=== PATIENT | male | born 1965 | race Caucasian/White ===

== ENCOUNTER 2017-09-11 22:17 | Emergency (ER) | payer SELFPAY ==
[~2017-09-11] VITALS: Ht 172.7 cm; Wt 63.4 kg
[~2017-09-11 22:17] MED LIST: HYDR25 PO; PRED20 PO
[2017-09-11 22:26] VITALS: BP 110/73; PULSE 103; RESP 16; TEMP 99.1; O2SAT 98
[2017-09-12 00:02] VITALS: BP 105/62; PULSE 89; RESP 17; TEMP 98.6; O2SAT 98
--- NOTE | 2017-09-12 00:35 | RADRPT ---
EXAM DATE/TIME: 09/12/2017 00:15 [place] COMPARISON: No previous studies available for comparison. INDICATIONS : Left knee swelling and tenderness. MEDICAL HISTORY : None. SURGICAL HISTORY : None. ENCOUNTER: Initial ACUITY: 1 day PAIN SCORE: 3/10 LOCATION: Left knee FINDINGS: There is prominent prepatellar soft tissue swelling. No evidence of underlying fracture or dislocatio n. Mineralization is normal and no significant articular abnormalities are evident. There is no evide nce of suprapatellar effusion. CONCLUSION: Prominent prepatellar swelling Patel Pinto MD on September 12, 2017 at 0:32 Board Certified Radiologist. This report was verified electronically.
[2017-09-12 00:44] LABS: AUTOMATED NEUTROPHIL # 8.2 TH/MM3 (1.8-7.7); BASOPHIL # 0.1 TH/MM3 (0-0.2); BASOPHIL % 0.7 % (0.0-2.0); EOSINOPHIL # 0.2 TH/MM3 (0-0.4); EOSINOPHIL % 1.7 % (0.0-4.0); HEMATOCRIT 44.8 % (39.0-51.0); HEMOGLOBIN 16.4 GM/DL (13.0-17.0); LYMPH % 14.2 % (9.0-44.0); LYMPHOCYTE # 1.6 TH/MM3 (1.0-4.8); MEAN CELL VOLUME 92.2 FL (80.0-100.0); MEAN CORPUSCULAR HEMOGLOBIN 33.7 PG (27.0-34.0); MEAN PLATELET VOLUME 7.4 FL (7.0-11.0); MONO % 8.5 % (0.0-8.0); MONOCYTE # 0.9 TH/MM3 (0-0.9); NEUT % 74.9 % (16.0-70.0); PLATELET COUNT 234 TH/MM3 (150-450); RED BLOOD COUNT 4.86 MIL/MM3 (4.50-5.90); RED CELL DISTRIBUTION WIDTH 13.6 % (11.6-17.2)
[2017-09-12 00:46] LABS: MEAN CORPUSCULAR HGB CONC 36.6 % (32.0-36.0)
[2017-09-12 00:51] LABS: ALBUMIN 3.8 GM/DL (3.4-5.0); ALT (GPT) 18 U/L (12-78); AST (GOT) 10 U/L (15-37); BICARBONATE 28.3 MEQ/L (21.0-32.0); BLOOD UREA NITROGEN 17 MG/DL (7-18); CALCIUM 8.8 MG/DL (8.5-10.1); CHLORIDE 104 MEQ/L (98-107); CREATININE 0.85 MG/DL (0.60-1.30); GLOMERULAR FILTRATION RATE 95 ML/MIN (>89); GLUCOSE,RANDOM 90 MG/DL (74-106); SODIUM (NA) 140 MEQ/L (136-145)
[2017-09-12 00:53] LABS: ALKALINE PHOSPHATASE 64 U/L (45-117); TOTAL BILIRUBIN ADULT 0.6 MG/DL (0.2-1.0); TOTAL PROTEIN 7.3 GM/DL (6.4-8.2)
--- NOTE | 2017-09-12 00:58 | PD ---
Physical Exam Date Seen by Provider: Sep 12, 2017 Time Seen by Provider: 00:54 Narrative 52-year-old male came to the emergency room with left knee swelling, pain and redness that has been going on for past 3-4 days. Patient says that he works as a industrial robotics mechanic and was kneeling down and working in a car and after that the symptoms started. It is progressively worsening. Patient is seen by my nurse practitioner and I am supervising her. The knee looks swollen and red and warm to touch. There was prepatellar fluctuance. My clinical diagnosis was prepatellar bursitis and cellulitis. X-ray of the knee showed prepatellar soft tissue swelling but no knee joint effusion. Decision was to do a tap of the prepatellar bursa and sent fluid for culture and Gram stain. Vital signs are stable. Patient had a prepatellar bursa tapped and tolerated the procedure well. Please refer to my procedure note. He will get antibiotic IV and DC home on oral antibiotics. Data Data Last Documented VS Vital Signs Date Time Temp Pulse Resp B/P (MAP) Pulse Ox O2 Delivery O2 Flow Rate FiO2 09/12/17 02:22 09/12/17 00:02 98.6 89 17 98 Room Air Orders Orders Complete Blood Count With Diff (09/12/17 00:08) Comprehensive Metabolic Panel (09/12/17 00:08) Lactic Acid Sepsis Protocol (09/12/17 00:08) Blood Culture (09/12/17 00:08) Ecg Monitoring (09/12/17 00:08) Iv Access Insert/Monitor (09/12/17 00:08) Oximetry (09/12/17 00:08) Knee, Complete (4vws) (09/12/17 ) Synovial Fl Cell Count + Diff (09/12/17 00:39) Fluid Culture And Gram Stain (09/12/17 00:39) Vancomycin Inj (Vancomycin Inj) (09/12/17 01:00) Ed Discharge Order (09/12/17 01:20) Labs Laboratory Tests Test 09/12/17 00:10 09/12/17 00:15 09/12/17 00:50 White Blood Count 11.0 TH/MM3 Red Blood Count 4.86 MIL/MM3 Hemoglobin 16.4 GM/DL Hematocrit 44.8 % Mean Corpuscular Volume 92.2 FL Mean Corpuscular Hemoglobin 33.7 PG Mean Corpuscular Hemoglobin Concent 36.6 % Red Cell Distribution Width 13.6 % Platelet Count 234 TH/MM3 Mean Platelet Volume 7.4 FL Neutrophils (%) (Auto) 74.9 % Lymphocytes (%) (Auto) 14.2 % Monocytes (%) (Auto) 8.5 % Eosinophils (%) (Auto) 1.7 % Basophils (%) (Auto) 0.7 % Neutrophils # (Auto) 8.2 TH/MM3 Lymphocytes # (Auto) 1.6 TH/MM3 Monocytes # (Auto) 0.9 TH/MM3 Eosinophils # (Auto) 0.2 TH/MM3 Basophils # (Auto) 0.1 TH/MM3 CBC Comment AUTO DIFF Differential Comment AUTO DIFF CONFIRMED Platelet Estimate NORMAL Platelet Morphology Comment NORMAL Blood Urea Nitrogen 17 MG/DL Creatinine 0.85 MG/DL Random Glucose 90 MG/DL Total Protein 7.3 GM/DL Albumin 3.8 GM/DL Calcium Level 8.8 MG/DL Alkaline Phosphatase 64 U/L Aspartate Amino Transf (AST/SGOT) 10 U/L Alanine Aminotransferase (ALT/SGPT) 18 U/L Total Bilirubin 0.6 MG/DL Sodium Level 140 MEQ/L Potassium Level 4.1 MEQ/L Chloride Level 104 MEQ/L Carbon Dioxide Level 28.3 MEQ/L Anion Gap 8 MEQ/L Estimat Glomerular Filtration Rate 95 ML/MIN Lactic Acid Level 0.7 mmol/L Synovial Fluid Color RED Synovial Fluid Appearance MODERATE Synovial Fluid WBC 71812 /MM3 Synovial Fluid RBC 89019 /MM3 Synovial Fluid Neutrophils 100 % Synovial Fluid Lymphocytes 0 % MDM Supervised Visit with [facility]: Yes Procedures Procedure Narrative Prepatellar bursa needle aspiration: The area was cleaned with Betadine 3. 2 mL of 1% lidocaine was infiltrated over the skin. 18-gauge needle was introduced into the prepatellar bursa and 3 cc of serosanguineous fluid aspirated out. The needle was taken out and pressure was applied to the area. Nonadhesive dressing with Damon wrap was applied. Patient tolerated the procedure well. The fluid has been sent for culture and Gram stain. Scripts Oxycodone-Acetaminophen (Percocet) 5-325 mg Tab 1 TAB PO Q6H Y for PAIN, #10 TAB 0 Refills Prov: Monica Huertas 09/12/17 Sulfamethoxazole-Trimethoprim (Bactrim DS) 800-160 Mg Tab 1 TAB PO BID for Infection, #20 TAB 0 Refills Prov: Monica Huertas 09/12/17 Flako Drummond MD Sep 12, 2017 00:58
[2017-09-12] MEDS ORDERED: VANCOMYCIN INJ 1,000 MG in SODIUM CHLOR 0.9% 250 ML INJ 250 ML IV ONE (01:00)
[2017-09-12] MEDS ORDERED: PERC5TAB12 PO (01:20)
[2017-09-12] MEDS ORDERED: BACT800T5 PO (01:20)
--- NOTE | 2017-09-12 01:21 | PD ---
HPI Chief Complaint: Skin Problem Time Seen by Provider: 23:59 Travel History International Travel<30 days: No Contact w/Intl Traveler<30days: No Traveled to known affect area: No History of Present Illness HPI Patient is a 52-year-old male presenting to emerge from for evaluation of left knee pain and swelling. He states he initially noticed it 2 weeks ago however for the last 3-4 days it has gotten progressively worse, the redness is spread to the leg. He reports his pain is a 6 out of 10. Pain is worse first thing in the morning and with movement. Patient denies any IV drug use, fever, chills. Symptom onset was gradual, symptom severity is moderate. There are no alleviating factors. Patient denies any trauma PFSH Past Medical History Medical History: Denies Significant Hx Diminished Hearing: No Immunizations Current: Yes Social History Alcohol Use: No Tobacco Use: Yes (1PPD) Substance Use: No (history of MARIJUANA OCC) Allergies-Medications (Allergen,Severity, Reaction): Coded Allergies: bee venom protein (honey bee) (Unverified Allergy, Severe, 09/11/17) meperidine (Unverified Allergy, Severe, EDEMA, 09/11/17) Reported Meds & Prescriptions Reported Meds & Active Scripts Active No Active Prescriptions or Reported Medications Review of Systems Except as stated in HPI: all other systems reviewed are Neg Musculoskeletal: Positive: Myalgias, Arthralgias, Edema, Pain Skin: Positive Change in Pigmentation Physical Exam Narrative GENERAL: Well-developed, well-nourished, alert male. Presenting in no acute distress. SKIN: Warm and dry. Erythema to anterior left knee extending down the left lower leg. HEAD: Atraumatic. Normocephalic. EYES: Pupils equal and round. No scleral icterus. No injection or drainage. ENT: No nasal bleeding or discharge. Mucous membranes pink and moist. NECK: Trachea midline. No JVD. CARDIOVASCULAR: Regular rate and rhythm. RESPIRATORY: No accessory muscle use. Clear to auscultation. Breath sounds equal bilaterally. GASTROINTESTINAL: Abdomen soft, non-tender, nondistended. Hepatic and splenic margins not palpable. MUSCULOSKELETAL: Extremities without clubbing, cyanosis. Positive prepatellar edema to the left knee, fluctuance noted.. No obvious deformities. Negative Homans sign NEUROLOGICAL: Awake and alert. No obvious cranial nerve deficits. Motor grossly within normal limits. Five out of 5 muscle strength in the arms and legs. Normal speech. PSYCHIATRIC: Appropriate mood and affect; insight and judgment normal. Data Data Last Documented VS Vital Signs Date Time Temp Pulse Resp B/P (MAP) Pulse Ox O2 Delivery O2 Flow Rate FiO2 09/12/17 00:02 98.6 89 17 105/62 (76) 98 Room Air Orders Orders Complete Blood Count With Diff (09/12/17 00:08) Comprehensive Metabolic Panel (09/12/17 00:08) Lactic Acid Sepsis Protocol (09/12/17 00:08) Blood Culture (09/12/17 00:08) Ecg Monitoring (09/12/17 00:08) Iv Access Insert/Monitor (09/12/17 00:08) Oximetry (09/12/17 00:08) Knee, Complete (4vws) (09/12/17 ) Synovial Fl Cell Count + Diff (09/12/17 00:39) Fluid Culture And Gram Stain (09/12/17 00:39) Vancomycin Inj (Vancomycin Inj) (09/12/17 01:00) Labs Laboratory Tests Test 09/12/17 00:10 09/12/17 00:15 09/12/17 00:50 White Blood Count 11.0 TH/MM3 Red Blood Count 4.86 MIL/MM3 Hemoglobin 16.4 GM/DL Hematocrit 44.8 % Mean Corpuscular Volume 92.2 FL Mean Corpuscular Hemoglobin 33.7 PG Mean Corpuscular Hemoglobin Concent 36.6 % Red Cell Distribution Width 13.6 % Platelet Count 234 TH/MM3 Mean Platelet Volume 7.4 FL Neutrophils (%) (Auto) 74.9 % Lymphocytes (%) (Auto) 14.2 % Monocytes (%) (Auto) 8.5 % Eosinophils (%) (Auto) 1.7 % Basophils (%) (Auto) 0.7 % Neutrophils # (Auto) 8.2 TH/MM3 Lymphocytes # (Auto) 1.6 TH/MM3 Monocytes # (Auto) 0.9 TH/MM3 Eosinophils # (Auto) 0.2 TH/MM3 Basophils # (Auto) 0.1 TH/MM3 CBC Comment AUTO DIFF Blood Urea Nitrogen 17 MG/DL Creatinine 0.85 MG/DL Random Glucose 90 MG/DL Total Protein 7.3 GM/DL Albumin 3.8 GM/DL Calcium Level 8.8 MG/DL Alkaline Phosphatase 64 U/L Aspartate Amino Transf (AST/SGOT) 10 U/L Alanine Aminotransferase (ALT/SGPT) 18 U/L Total Bilirubin 0.6 MG/DL Sodium Level 140 MEQ/L Potassium Level 4.1 MEQ/L Chloride Level 104 MEQ/L Carbon Dioxide Level 28.3 MEQ/L Anion Gap 8 MEQ/L Estimat Glomerular Filtration Rate 95 ML/MIN Lactic Acid Level 0.7 mmol/L MDM Medical Decision Making Medical Screen Exam Complete: Yes Emergency Medical Condition: Yes Interpretation(s) Last Impressions Knee X-Ray 09/12/17 0000 Signed Impressions: Service Date/Time: Tuesday, September 12, 2017 00:15 - CONCLUSION: Prominent prepatellar swelling Patel Pinto MD Vital Signs Date Time Temp Pulse Resp B/P (MAP) Pulse Ox O2 Delivery O2 Flow Rate FiO2 09/12/17 00:02 98.6 89 17 105/62 (76) 98 Room Air 09/11/17 22:26 99.1 103 16 110/73 (85) 98 Differential Diagnosis Septic arthritis versus cellulitis versus bursitis versus metabolic abnormality versus other Narrative Course Patient presented for evaluation of left knee pain and swelling. His vital signs are stable, labs imaging ordered and pending. X-ray shows prominent prepatellar swelling. Please see Dr. Drumomnd's note for procedure. CBC with no acute findings Lactic acid 0.7 Chemistry is unremarkable Fluid culture, Gram stain and cell count is pending. Patient was given 1 g of vancomycin IV. He will be discharged home on Bactrim per Dr. Drummond's recommendation. He was given strict return cautions. He is advised to return immediately for any new or worsening symptoms. He was advised to keep extremity elevated. Knee was placed in an Damon wrap. Patient verbalized understanding of all the discharge instructions as well as need for prompt follow-up. Patient stable for discharge per Diagnosis Primary Impression: Prepatellar bursitis Qualified Codes: M70.42 - Prepatellar bursitis, left knee Additional Impression: Cellulitis Qualified Codes: L03.116 - Cellulitis of left lower limb Referrals: Primary Care Physician 2 days Patient Instructions: Cellulitis (ED), General Instructions, Knee Bursitis (ED) Additional Instructions: Follow-up with a primary doctor Keep extremity elevated, keep Damon wrap on for support and swelling Complete full course of antibiotics as prescribed Return to emergency department immediately for any new or worsening symptoms as discussed Med/Other Pt SpecificInfo: Prescription(s) given Scripts Oxycodone-Acetaminophen (Percocet) 5-325 mg Tab 1 TAB PO Q6H Y for PAIN, #10 TAB 0 Refills Prov: Monica Huertas 09/12/17 Sulfamethoxazole-Trimethoprim (Bactrim DS) 800-160 Mg Tab 1 TAB PO BID for Infection, #20 TAB 0 Refills Prov: Monica Huertas 09/12/17 Disposition: 01 DISCHARGE HOME Condition: Stable Monica Huertas Sep 12, 2017 01:21
[2017-09-12 02:35] LABS: WBC, SYNOVIAL FLUID 20200 /MM3 (0-200)
== END 2017-09-12 02:24 | disposition home or self-care (01) ==
LOC: NEPD 22:17
DX: M70.42 Prepatellar bursitis, left knee (principal); L03.116 Cellulitis of left lower limb; F17.200 Nicotine dependence, unspecified, uncomplicated
CPT/HCPCS: 73564; 80053; 83605; 85025; 86403; 87040; 87070; 87186; 87205; 89051; 96365; 99284; J3370; J7050